=== PATIENT | male | born 1980 | race Two or more races ===

== ENCOUNTER 2018-03-07 20:06 | Emergency (ER) | payer SELFPAY ==
[~2018-03-07] VITALS: Ht 177.8 cm; Wt 104.5 kg
[2018-03-07] MEDS ORDERED: ONDANSETRON 4MG/2ML VIAL (J2405) IV ONE (20:30)
[2018-03-07] MEDS ORDERED: KETOROLAC 30 MG/ML VIAL (J1885) IV ONE (20:30)
[2018-03-07 20:43] LABS: BASO # 0.1 10^3/uL (0.0-0.2); BASO % 0.6 % (0.0-1.0); EOS # 0.1 10^3/uL (0.0-0.50); EOS % 1.3 % (0.0-3.0); HEMATOCRIT 49.5 % (42.0-52.0); HEMOGLOBIN 17.1 g/dl (13.5-17.5); LYMPH # 2.4 10^3/uL (1.5-4.5); LYMPH % 27.5 % (24.0-44.0); MEAN CORPUSCULAR HEMOGLOBIN 30.4 pg (27.0-33.0); MEAN CORPUSCULAR HGB CONC 34.5 g/dl (32.0-36.5); MEAN CORPUSCULAR VOLUME 88.1 fl (80.0-96.0); MONO # 0.6 10^3/uL (0.0-0.8); MONO % 7.4 % (0.0-5.0); NEUTROPHILS # 5.4 10^3/uL (1.8-7.7); PLATELET COUNT, AUTOMATED 255 10^3/uL (150-450); RED BLOOD COUNT 5.62 10^6/uL (4.30-6.10); WHITE BLOOD COUNT 8.6 10^3/uL (4.0-10.0)
[2018-03-07 21:04] LABS: BLOOD UREA NITROGEN 14 MG/DL (7-18); C REACTIVE PROTEIN QUANTITATIV < 0.30 MG/DL (0.00-0.30); CARBON DIOXIDE LEVEL 29 MEQ/L (21-32); CHLORIDE LEVEL 108 MEQ/L (98-107); CREATININE FOR GFR 1.11 MG/DL (0.70-1.30); GLOMERULAR FILTRATION RATE > 60.0 (>60); GLUCOSE, FASTING 105 MG/DL (70-100); POTASSIUM SERUM 4.4 MEQ/L (3.5-5.1); SODIUM LEVEL 143 MEQ/L (136-145)
[2018-03-07] MEDS ORDERED: MORPHINE 4 MG/ML 1ML VIAL/SYRINGE (J2270) IV ONE (21:15)
--- NOTE | 2018-03-07 21:26 | REPVR ---
EXAM: CT Abdomen and Pelvis Without Contrast EXAM DATE/TIME: 03/07/2018 9:01 PM CLINICAL HISTORY: 37 years old, male; Pain; Abdominal pain; Flank; Right; Additional info: Right flank pain TECHNIQUE: Axial computed tomography images of the abdomen and pelvis without contrast. All CT scans at this facility use at least one of these dose optimization techniques: automated exposure control; mA and/or kV adjustment per patient size (includes targeted exams where dose is matched to clinical indication); or iterative reconstruction. Coronal and sagittal reformatted images were created and reviewed. COMPARISON: No relevant prior studies available. FINDINGS: Lower thorax: Mild linear stranding and groundglass at the lung bases, likely due to atelectasis. Small hiatal hernia. ABDOMEN: Liver: Unremarkable. Gallbladder and bile ducts: Mild gallbladder distention without radiodense gallstones. Pancreas: Unremarkable. Spleen: Unremarkable. Adrenals: Unremarkable. Kidneys and ureters: No mass. No radiodense calculi. No hydronephrosis. Stomach and bowel: Moderate amount of retained stool in the colon. No obstruction. No bowel wall thickening. No pneumatosis. Appendix: Normal. PELVIS: Bladder: Mild circumferential urinary bladder wall thickening, likely secondary to underdistention. Reproductive: Unremarkable. ABDOMEN and PELVIS: Intraperitoneal space: No free fluid. No organized fluid collection. No free air. Bones/joints: No acute osseous abnormality. Soft tissues: Small, fat-containing umbilical hernia. Vasculature: Unremarkable. No aneurysm. Lymph nodes: Small retroperitoneal lymph nodes, nonspecific in appearance. No pathologically enlarged lymph nodes. IMPRESSION: 1. Limited noncontrast examination without CT evidence of acute intra-abdominal or pelvic pathology. 2. Additional findings, as above. Electronically signed by: Frank Rice On 03/07/2018 21:26:10 PM
[2018-03-07 21:51] VITALS: BP 105/55
[2018-03-07] MEDS ORDERED: ONDA4TAB6 PO (21:51)
[2018-03-07] MEDS ORDERED: KETO10TAB PO (21:51)
== END 2018-03-07 22:20 | disposition home or self-care (01) ==
LOC: M ED 20:06
DX: R10.9 Unspecified abdominal pain (principal); R11.0 Nausea
CPT/HCPCS: 74176; 80048; 81001; 85025; 86140; 96374; 96375; 99284; J1885; J2270; J2405

== ENCOUNTER 2018-04-12 17:54 | Emergency (ER) | payer BC, SELFPAY ==
[~2018-04-12] VITALS: Ht 177.8 cm; Wt 104.5 kg
[~2018-04-12 17:54] MED LIST: KETO10TAB PO; ONDA4TAB6 PO
[2018-04-12] MEDS ORDERED: NS 1,000 ML IV ONE (18:45)
[2018-04-12] MEDS ORDERED: KETOROLAC 30 MG/ML VIAL (J1885) IV ONE (18:45)
[2018-04-12 18:47] LABS: BILIRUBIN, URINE MANUAL OBSCURED (NEGATIVE); GLUCOSE, URINE (UA) MANUAL OBSCURED mg/dL (NEGATIVE); KETONE, URINE MANUAL OBSCURED mg/dL (NEGATIVE); UROBILINOGEN, URINE MANUAL OBSCURED mg/dl (NORMAL)
[2018-04-12 18:52] LABS: BASO % 0.5 % (0.0-1.0); EOS # 0.1 10^3/uL (0.0-0.50); EOS % 1.5 % (0.0-3.0); HEMATOCRIT 43.3 % (42.0-52.0); HEMOGLOBIN 14.8 g/dl (13.5-17.5); LYMPH # 1.6 10^3/uL (1.5-4.5); LYMPH % 18.9 % (24.0-44.0); MEAN CORPUSCULAR HEMOGLOBIN 29.8 pg (27.0-33.0); MEAN CORPUSCULAR HGB CONC 34.2 g/dl (32.0-36.5); MEAN CORPUSCULAR VOLUME 87.3 fl (80.0-96.0); MONO # 0.6 10^3/uL (0.0-0.8); MONO % 6.7 % (0.0-5.0); NEUTROPHILS # 6.1 10^3/uL (1.8-7.7); NEUTROPHILS % 72.2 % (36.0-66.0); PLATELET COUNT, AUTOMATED 233 10^3/uL (150-450); RED BLOOD COUNT 4.96 10^6/uL (4.30-6.10); WHITE BLOOD COUNT 8.5 10^3/uL (4.0-10.0)
[2018-04-12 18:55] LABS: BACTERIA, URINE NONE SEEN; HYALINE CAST, URINE NONE SEEN /lpf (0-1); SQUAMOUS EPITHELIAL CELL URINE NONE SEEN /hpf (SMALL AMT)
[2018-04-12 18:56] LABS: CALCIUM OXALATE CRYSTALS,URINE SMALL AMOUNT /hpf
--- NOTE | 2018-04-12 19:03 | REP ---
Clinical: Right flank pain. Technique: Axial noncontrast images from the lung bases to the pubic symphysis with coronal and sagittal re-formations. Comparison: 03/07/2018. Findings: Lung bases are clear. Liver, spleen, pancreas, gallbladder, bilateral adrenal glands and kidneys are normal. Specifically, no perinephric stranding, hydroureteronephrosis, intrarenal or obstructing ureteral calculi are identified. The enteric system is without obstruction or acute inflammatory process. Normal terminal ileum and appendix are identified in the right lower quadrant. Pelvis demonstrates normal bladder and age appropriate prostate/seminal vesicles. No ascites. No free air. No adenopathy. 2 cm fat containing periumbilical hernia noted. Skeletal structures are intact without focal osseous abnormality. Impression: Normal noncontrast CT of the abdomen and pelvis. Electronically Signed by Roderick Barrett MD 04/12/2018 06:54 P
[2018-04-12 19:19] LABS: ALBUMIN 3.4 GM/DL (3.2-5.2); ALT/SGPT 181 U/L (12-78); BILIRUBIN,DIRECT 1.7 MG/DL (0.0-0.2); BILIRUBIN,TOTAL 3.4 MG/DL (0.2-1.0); BLOOD UREA NITROGEN 18 MG/DL (7-18); CALCIUM LEVEL 8.3 MG/DL (8.5-10.1); CARBON DIOXIDE LEVEL 23 MEQ/L (21-32); CHLORIDE LEVEL 111 MEQ/L (98-107); CREATININE FOR GFR 0.97 MG/DL (0.70-1.30); GLOMERULAR FILTRATION RATE > 60.0 (>60); GLUCOSE, FASTING 112 MG/DL (70-100); LIPASE 132 U/L (73-393); POTASSIUM SERUM 4.4 MEQ/L (3.5-5.1); SODIUM LEVEL 142 MEQ/L (136-145); TOTAL PROTEIN 6.4 GM/DL (6.4-8.2)
[2018-04-12] MEDS ORDERED: MORPHINE 4 MG/ML 1ML VIAL/SYRINGE (J2270) IV ONE (19:30)
--- NOTE | 2018-04-12 20:44 | REPVR ---
EXAM: US Abdomen Limited, Right Upper Quadrant EXAM DATE/TIME: 04/12/2018 7:44 PM CLINICAL HISTORY: 37 years old, male; Pain; Abdominal pain; Flank; Right upper quadrant (ruq); Additional info: R flank pain, elev lfts, bili TECHNIQUE: Real-time ultrasound of the abdomen with image documentation. Examination was focused on the right upper quadrant. COMPARISON: CT ABD PELVIS W/O CONTRAST 04/12/2018 6:51 PM FINDINGS: Liver: There is mild fatty infiltration of liver. Gallbladder: There is a small amount of sludge in the gallbladder but no evidence of gallstones. The common bile duct is normal in size measuring 6 mm. The gallbladder wall measures less than 2 mm in thickness. Negative Larsen's sign. Right kidney: The right kidney measures 12 CM in length with no evidence of hydronephrosis. IMPRESSION: Small amount of sludge in the gallbladder. No evidence of gallstones. Electronically signed by: Nicola Santiago On 04/12/2018 20:44:06 PM
[2018-04-12] MEDS ORDERED: NORCOTAB PO (21:19)
[2018-04-12] MEDS ORDERED: NORCO 5/325MG TABLET (BULK FOR ED) PO ONE (21:30)
[2018-04-12 21:43] VITALS: BP 118/57
== END 2018-04-12 21:54 | disposition home or self-care (01) ==
LOC: M ED 17:54
DX: K83.8 Other specified diseases of biliary tract (principal); R17 Unspecified jaundice; R79.89 Other specified abnormal findings of blood chemistry; R10.11 Right upper quadrant pain; F17.200 Nicotine dependence, unspecified, uncomplicated
CPT/HCPCS: 74176; 76705; 80048; 80076; 81000; 83690; 85025; 87086; 96374; 96375; 99284; J1885; J2270

== ENCOUNTER → 2019-09-29 | Outpatient (CLI) | payer BC ==
[~2019-09-29] MED LIST changes: +ACET-908 PO; +AMOX875T2 PO; +HYDR-3715 PO; +IBUP200C33 PO
--- NOTE | 2019-10-23 14:20 | SLEEPCENT ---
DATE: 09/29/2019 ORDERED BY: Deanne Billingsley Nocturnal polysomnography was performed for evaluation of sleep physiology in this patient with a history of excessive somnolence and nonrestorative sleep who has a past medical history of pericarditis. There was 7 hours and 38 minutes of data reviewed. There was 375.5 minutes of sleep identified. Sleep latency was mildly prolonged at 10.5 minutes. REM latency was quite prolonged at 369 minutes. Sleep architecture showed fragmentation and poor progression Two REM cycles were seen late in the study. Overall sleep efficiency was 82.8%. The patient's electrocardiogram showed a sinus rhythm with an average heart rate of 70 beats per minute. EEG showed reasonably normal waveforms for wake and sleep. There were 171 respiratory events identified of 10 seconds in duration or greater for an apnea-hypopnea index of 27.3. The events were primarily obstructive, not exclusive to sleep stage, more frequent but not exclusive to the supine posture. Arousals from respiratory events occurred 9.9 times per hour. Oxygen desaturations were seen in to the 80s. There was some limb activity, but arousals from limb events were infrequent. IMPRESSION: Obstructive sleep apnea syndrome (G47.33). Apnea-hypopnea index 27.3. RECOMMENDATION: The patient should be encouraged to return to the sleep disorder center for pressure therapy. In the interim, alcohol and sedative avoidance should be practiced and caution exercised during the operation of motor vehicles. MTDD
== END ==
LOC: M SLEEP 20:00
PROVIDERS: ATTEND Nurse Practitioner Family
DX: G47.33 Obstructive sleep apnea (adult) (pediatric) (principal)

== ENCOUNTER → 2019-11-12 | Outpatient (CLI) | payer BC ==
--- NOTE | 2019-11-15 19:30 | SLEEPCENT ---
DATE: 11/12/2019 ORDERED BY: GUSTAVO Melendez Nocturnal polysomnography was performed for the titration and pressure therapy in this patient with obstructive sleep apnea syndrome. Apnea-hypopnea index 27.1. For testing, a [employer] Sim[employer] full facemask of medium size was used, 4 cm of water pressure were applied to the circuit, and the lights were extinguished. 8 hours and 5 minutes of data were reviewed. There were 414 minutes of sleep identified. Sleep latency was normal at 10 minutes. REM latency was normal at 86 minutes. Sleep architecture was good with 4 REM cycles. Overall sleep efficiency was 87.5%. The electrocardiogram showed a sinus rhythm with an average heart rate of 68 beats per minute. Unifocal ventricular ectopic beats were seen. EEG showed reasonably normal waveforms for wake and sleep. Respiratory events were best palliated with CPAP at a pressure of +11 and remaining measures of sleep physiology were normal. IMPRESSION: Obstructive sleep apnea syndrome (G47.33). RECOMMENDATIONS: Nightly use of pressure therapy 11 cm of water. MTDD
== END ==
LOC: M SLEEP 20:00
PROVIDERS: ATTEND Nurse Practitioner Family
DX: G47.33 Obstructive sleep apnea (adult) (pediatric) (principal)

== ENCOUNTER → 2021-07-16 | Outpatient (REF) | payer BC ==
[~2021-07-16] MED LIST changes: -ACET-908 PO; +ACET-910 PO
== END ==
LOC: M LAB REF 09:38
PROVIDERS: ATTEND Physician Assistant
DX: J02.9 Acute pharyngitis, unspecified (principal)

== ENCOUNTER 2021-11-22 23:11 | Emergency (ER) | payer BC ==
[~2021-11-22] VITALS: Ht 177.8 cm; Wt 120.0 kg
[2021-11-22 23:12] VITALS: BP 136/83
== END 2021-11-23 02:00 | disposition left against medical advice (07) ==
LOC: M ED 23:11
DX: Z53.21 Procedure and treatment not carried out due to patient leaving prior to being seen by health care provider (principal)

== ENCOUNTER → 2023-04-24 | Outpatient (REF) | payer BC, SELFPAY ==
[2023-04-25 13:00] LABS: Trichomonas vaginalis (AMP) NOT DETECTED (NEGATIVE)
[2023-04-25 13:24] LABS: GC DNA AMPLIFICATION NEGATIVE (NEGATIVE)
== END ==
LOC: M LAB REF 09:51
PROVIDERS: ATTEND Student in an Organized Health Care Education/Training Program
DX: R30.0 Dysuria (principal)

== ENCOUNTER → 2024-03-23 | Outpatient (REF) | payer BC ==
[~2024-03-23] MED LIST changes: +ONDA-282 PO; -ONDA4TAB6 PO
== END ==
LOC: M LABWUC 09:46
PROVIDERS: ATTEND Physician Assistant
DX: M10.072 Idiopathic gout, left ankle and foot (principal)

== ENCOUNTER → 2024-03-23 | Outpatient (REF) | payer BC ==
[2024-03-23 11:06] LABS: HEMATOCRIT 47.4 % (42.0-52.0); HEMOGLOBIN 16.2 g/dl (13.5-17.5); MEAN CORPUSCULAR HEMOGLOBIN 31.2 pg (27.0-33.0); MEAN CORPUSCULAR HGB CONC 34.2 g/dl (32.0-36.5); MEAN CORPUSCULAR VOLUME 91.2 fl (80.0-96.0); PLATELET COUNT, AUTOMATED 288 10^3/uL (150-450)
[2024-03-23 11:50] LABS: ALBUMIN 3.9 G/DL (3.2-5.2); ALKALINE PHOSPHATASE 58 U/L (40-129); ALT/SGPT 30 U/L (7.0-40); AST/SGOT 14 U/L (<34); BILIRUBIN,TOTAL 0.6 MG/DL (0.3-1.2); BLOOD UREA NITROGEN 16 MG/DL (9-23); CALCIUM LEVEL 9.9 MG/DL (8.5-10.1); CARBON DIOXIDE LEVEL 22 MMOL/L (20-31); CHLORIDE LEVEL 110 MMOL/L (98-107); CREATININE FOR GFR 0.82 MG/DL (0.70-1.30); GLOMERULAR FILTRATION RATE > 60.0 (>60); GLUCOSE, FASTING 64 MG/DL (60-100); POTASSIUM SERUM 4.6 MMOL/L (3.5-5.1); SODIUM LEVEL 143 MMOL/L (136-145); THYROID STIMULATING HORMONE 1.409 uIU/ML (0.55-4.78); TOTAL PROTEIN 6.9 G/DL (5.7-8.2)
== END ==
LOC: M LABWUC 09:44
PROVIDERS: ATTEND Physician Assistant
DX: F41.9 Anxiety disorder, unspecified (principal); F33.1 Major depressive disorder, recurrent, moderate; F90.0 Attention-deficit hyperactivity disorder, predominantly inattentive type